=== PATIENT | male | born 1970 | race Caucasian/White ===

== ENCOUNTER 2019-07-23 14:05 | Emergency (ER) | payer MEDICAID ==
[~2019-07-23] VITALS: Ht 167.6 cm; Wt 88.0 kg
[2019-07-23] MEDS ORDERED: BACITRACIN ZINC OINT UDPKT TOP ONE (15:00)
[2019-07-23] MEDS ORDERED: LIDOCAINE HCL/PF 1% 10 MG/ML 5ML VIAL IJ ONE (15:00)
[2019-07-23] MEDS ORDERED: HYDROCODONE/ACETAMINOPHEN 5/325MG TABLET PO ONE (15:00)
[2019-07-23] MEDS ORDERED: BACITRACIN 15GM TUBE TOP NR (16:47)
[2019-07-23 17:36] VITALS: BP 128/74
== END 2019-07-23 17:41 | disposition home or self-care (01) ==
LOC: ER 14:05
DX: S81.011A Laceration without foreign body, right knee, initial encounter (principal); W01.0XXA Fall on same level from slipping, tripping and stumbling without subsequent striking against object, initial encounter; Y93.89 Activity, other specified; Y92.89 Other specified places as the place of occurrence of the external cause; Y99.8 Other external cause status
CPT/HCPCS: 12002; 73562; 99283; A4217; J3490; Z7610

== ENCOUNTER 2019-07-26 08:09 | Emergency (ER) | payer MEDICAID ==
[~2019-07-26] VITALS: Ht 172.7 cm; Wt 90.0 kg
[2019-07-26] MEDS ORDERED: KETOROLAC 30MG/ML VIAL IV ONE (10:00)
[2019-07-26] MEDS ORDERED: VANCOMYCIN 1 G PREMIX 200 ML IV SCH (10:00)
[2019-07-26 10:12] VITALS: BP 145/74
== END 2019-07-26 12:34 | disposition home or self-care (01) ==
LOC: ER 08:10
DX: S81.011D Laceration without foreign body, right knee, subsequent encounter (principal); X58.XXXD Exposure to other specified factors, subsequent encounter
CPT/HCPCS: 96365; 96375; 99283; J1885; J3370

== ENCOUNTER 2019-07-31 10:50 | Emergency (ER) | payer MEDICAID ==
[~2019-07-31] VITALS: Ht 167.6 cm; Wt 86.0 kg
[2019-07-31 11:20] VITALS: BP 138/78
== END 2019-07-31 14:02 | disposition home or self-care (01) ==
LOC: ER 10:50
DX: S81.011D Laceration without foreign body, right knee, subsequent encounter (principal); Z96.652 Presence of left artificial knee joint; X58.XXXD Exposure to other specified factors, subsequent encounter
CPT/HCPCS: 99281